=== PATIENT | male | born 1950 | race Caucasian/White ===

== ENCOUNTER 2017-07-13 07:01 | Inpatient (IN) | payer MEDICARE ==
[~2017-07-13] VITALS: Ht 172.7 cm; Wt 72.1 kg
[~2017-07-13 07:01] MED LIST: BACITRACIN 50,000 UNIT ONE; BUPIVACAINE 0.25% ONE; BUPIVACAINE/PF 0.5% ONE; EPINEPHRINE 1 MG/ML, 1ML ONE; THROMBIN 5,000 UNIT VIAL TP ONE
[2017-07-13] MEDS ORDERED: LISI-167 PO (07:58)
[2017-07-13] MEDS ORDERED: ATOR10TA9 PO (07:58)
[2017-07-13 07:59] VITALS: BP 136/76
[2017-07-13] MEDS ORDERED: LIDOCAINE 1%, 2ML SQ PRN (08:00)
[2017-07-13] MEDS ORDERED: PLEASE ENTER HEIGHT AND WEIGHT MC SCH (08:30)
[2017-07-13] MEDS: LACTATED RINGERS 1,000 ML IV SCH ×2 (08:34→15:04)
[2017-07-13] MEDS ORDERED: FLU VACC QS2017-18 (36MOS+) UP/PF 0.5 ML IM-VACC ONE ×2 (09:00→16:30)
[2017-07-13] MEDS ORDERED: MIDAZOLAM 1 MG/ML, 2ML ONE (09:00)
[2017-07-13] MEDS ORDERED: FENTANYL PF 250 MCG/5ML ONE (09:01)
[2017-07-13] MEDS ORDERED: CEFAZOLIN 1,000 MG ONE (09:03)
[2017-07-13] MEDS ORDERED: DEXAMETHASONE 4 MG/ML, 1ML ONE (09:03)
[2017-07-13] MEDS ORDERED: ONDANSETRON 2MG/ML, 2ML ONE (09:03)
[2017-07-13] MEDS ORDERED: PROPOFOL 10 MG/ML, 20ML ONE (09:03)
[2017-07-13] MEDS ORDERED: LIDOCAINE GEL 2%, 5ML ONE ×2 (09:03)
[2017-07-13] MEDS ORDERED: SUCCINYLCHOLINE 20 MG/ML, 10ML ONE (09:03)
[2017-07-13] MEDS ORDERED: PHENYLEPHRINE 10 MG/ML ONE (10:35)
[2017-07-13] MEDS ORDERED: LABETALOL 5MG/ML, 20ML ONE (10:35)
[2017-07-13] MEDS ORDERED: ROCURONIUM 10 MG/ML,10ML ONE (10:35)
[2017-07-13] MEDS ORDERED: EPHEDRINE 50 MG/ML, 1ML ONE ×2 (11:09)
[2017-07-13] MEDS ORDERED: FENTANYL PF 100 MCG/2ML IV PRN (11:30)
[2017-07-13] MEDS ORDERED: hydrALAzine 20 MG/ML, 1ML IV PRN (11:30)
[2017-07-13] MEDS ORDERED: MEPERIDINE/PF 25MG/0.5ML IVPush PRN (11:30)
[2017-07-13] MEDS ORDERED: MIDAZOLAM 1 MG/ML, 2ML IV PRN (11:30)
[2017-07-13] MEDS ORDERED: OXYcodone 5 MG/5 ML ORAL.SOL UDC PO PRN (11:30)
[2017-07-13] MEDS ORDERED: DIAZEPAM 5 MG/ML, 2ML IVPush PRN (11:30)
[2017-07-13] MEDS ORDERED: HYDROmorphone 1 MG/ML, 1ML IV PRN (11:30)
[2017-07-13] MEDS ORDERED: PROMETHAZINE 25 MG/ML, 1ML IV PRN (11:30)
[2017-07-13] MEDS ORDERED: ALBUTEROL/IPRATROPIUM 2.5MG/0.5MG, 3 ML NPPB PRN (11:30)
[2017-07-13] MEDS ORDERED: LORazepam 2 MG/ML, 1ML IVPush PRN (11:30)
[2017-07-13] MEDS ORDERED: LABETALOL 5MG/ML, 20ML IV PRN (11:30)
[2017-07-13] MEDS ORDERED: ACETAMINOPHEN 325 MG TABLET PO PRN (11:30)
[2017-07-13] MEDS ORDERED: ONDANSETRON 2MG/ML, 2ML IVPush PRN ×2 (11:30→13:30)
[2017-07-13] MEDS ORDERED: OXYcodone/APAP 5/325MG TABLET PO PRN (13:30)
[2017-07-13] MEDS ORDERED: PHARMACY MAY ADJ FOR RENAL FX MC PRN (13:30)
[2017-07-13] MEDS ORDERED: morphine SULFATE 10 MG/ML, 1ML IVPush PRN (13:30)
[2017-07-13] MEDS ORDERED: BISACODYL 10 MG SUPP PR PRN (13:30)
[2017-07-13] MEDS ORDERED: PROMETHAZINE 25 MG/ML, 1ML IM PRN (13:30)
[2017-07-13] MEDS ORDERED: CYCLOBENZAPRINE 10 MG TABLET PO PRN (13:30)
[2017-07-13] MEDS ORDERED: OXYcodone 5 MG/5 ML ORAL.SOL UDC ONE (13:30)
[2017-07-13] MEDS ORDERED: ACETAMINOPHEN 650 MG/20.3 ML UDC ONE (13:30)
[2017-07-13] MEDS ORDERED: DIPHENHYDRAMINE 50 MG/ML, 1ML IVPush PRN (13:30)
[2017-07-13] MEDS ORDERED: SENNA/DOCUSATE TABLET PO PRN (13:30)
[2017-07-13] MEDS ORDERED: PROMETHAZINE 25 MG/ML, 1ML ONE (13:53)
[2017-07-13 14:35] VITALS: BP 119/69
[2017-07-13] MEDS ORDERED: CEFAZOLIN PMX 1GM/50ML 50 ML IVPB SCH (15:30)
[2017-07-13] MEDS: D5%-0.9% NACL+KCL 20MEQ 1,000 ML IV SCH (16:53)
[2017-07-13] MEDS: CEFAZOLIN PMX 1GM/50ML 50 ML IVPB SCH (18:14)
[2017-07-13 19:26] VITALS: BP 112/63
[2017-07-13] MEDS: SODIUM CHLORIDE FLUSH 10ML SYR IVF SCH (21:00)
[2017-07-13] MEDS: ATORVASTATIN 10 MG TABLET PO SCH (21:00)
[2017-07-14 00:54] VITALS: BP 115/56
[2017-07-14] MEDS: CEFAZOLIN PMX 1GM/50ML 50 ML IVPB SCH (03:08)
[2017-07-14] MEDS: HYDROcodone/APAP 5/325 TABLET PO PRN (04:20)
[2017-07-14] MEDS: SODIUM CHLORIDE FLUSH 10ML SYR IVF SCH ×2 (09:00→21:21)
[2017-07-14] MEDS: LISINOPRIL 10 MG TABLET PO SCH (09:26)
[2017-07-14] MEDS: D5%-0.9% NACL+KCL 20MEQ 1,000 ML IV SCH ×2 (09:26→21:20)
[2017-07-14 09:27] VITALS: BP 110/57
[2017-07-14] MEDS: HYDROcodone/APAP 10/325 MG TABLET PO PRN ×2 (12:14→20:26)
[2017-07-14 12:46] VITALS: BP 115/70
[2017-07-14 19:50] VITALS: BP 104/54
[2017-07-14] MEDS: ATORVASTATIN 10 MG TABLET PO SCH (21:21)
[2017-07-15 00:37] VITALS: BP 118/68
[2017-07-15 07:51] VITALS: BP 133/77
[2017-07-15] MEDS: SODIUM CHLORIDE FLUSH 10ML SYR IVF SCH ×2 (09:13→22:31)
[2017-07-15] MEDS: HYDROcodone/APAP 10/325 MG TABLET PO PRN (09:13)
[2017-07-15] MEDS: LISINOPRIL 10 MG TABLET PO SCH (09:13)
[2017-07-15] MEDS: D5%-0.9% NACL+KCL 20MEQ 1,000 ML IV SCH (10:31)
[2017-07-15 13:21] VITALS: BP 133/73
[2017-07-15 19:28] VITALS: BP 99/64
[2017-07-15] MEDS: ATORVASTATIN 10 MG TABLET PO SCH (22:31)
[2017-07-15] MEDS: HYDROcodone/APAP 5/325 TABLET PO PRN (22:32)
[2017-07-16 03:41] VITALS: BP 106/68
[2017-07-16 07:20] VITALS: BP 98/63
[2017-07-16] MEDS: LISINOPRIL 10 MG TABLET PO SCH (08:40)
[2017-07-16] MEDS: SODIUM CHLORIDE FLUSH 10ML SYR IVF SCH ×2 (08:40→21:00)
[2017-07-16] MEDS: D5%-0.9% NACL+KCL 20MEQ 1,000 ML IV SCH ×2 (13:35)
[2017-07-16 14:40] VITALS: BP 103/63
[2017-07-16] MEDS ORDERED: LACTULOSE 20 GM/30 ML UDC PO PRN (15:00)
[2017-07-16 21:00] VITALS: BP 111/67
[2017-07-16] MEDS: ATORVASTATIN 10 MG TABLET PO SCH (21:00)
[2017-07-16] MEDS: SENNA/DOCUSATE TABLET PO SCH (21:22)
[2017-07-16] MEDS: MAGNESIUM HYDROXIDE 8%, 30ML UDC PO PRN (21:22)
[2017-07-17 01:50] VITALS: BP 116/72
[2017-07-17] MEDS: D5%-0.9% NACL+KCL 20MEQ 1,000 ML IV SCH ×2 (02:40→16:00)
[2017-07-17 08:35] LABS: BASOPHILS # (AUTO) 0.04 x10^3/uL (0-0.1); BASOPHILS % (AUTO) 0 % (0-1); EOSINOPHILS # (AUTO) 0.18 x10^3/uL (0-0.4); EOSINOPHILS % (AUTO) 2 % (1-7); LYMPHOCYTES # (AUTO) 1.62 x10^3/uL (1-3.4); LYMPHOCYTES % (AUTO) 17 % (22-44); MD NO; MEAN CORPUSCULAR HEMOGLOBIN 33.6 pg (27.5-34.5); MEAN CORPUSCULAR HGB CONC 34.3 g/dL (33.2-36.2); MEAN CORPUSCULAR VOLUME 97.8 fL (81-97); MEAN PLATELET VOLUME 7.7 fL (7.4-10.4); MONOCYTES # (AUTO) 0.64 x10^3/uL (0.2-0.8); MONOCYTES % (AUTO) 7 % (2-9); NEUTROPHILS # (AUTO) 7.07 x10^3/uL (1.8-6.8); NEUTROPHILS % (AUTO) 74 % (42-75); PLATELET COUNT 224 x10^3/uL (130-400); RED CELL DISTRIBUTION WIDTH 13.5 % (9.4-14.8)
[2017-07-17 08:37] VITALS: BP 125/63
[2017-07-17] MEDS: LISINOPRIL 10 MG TABLET PO SCH (08:40)
[2017-07-17] MEDS: SENNA/DOCUSATE TABLET PO SCH (08:41)
[2017-07-17] MEDS: SODIUM CHLORIDE FLUSH 10ML SYR IVF SCH ×2 (08:42→21:00)
[2017-07-17] MEDS: POLYETHYLENE GLYCOL 17 GM PACKET PO SCH (08:42)
[2017-07-17] MEDS: DOCUSATE 100 MG CAPSULE PO SCH (08:43)
[2017-07-17 08:45] LABS: ANION GAP 5 mmol/L (5-15); CHLORIDE 102 mmol/L (98-107)
[2017-07-17 08:46] LABS: CREATININE 0.68 mg/dL (0.7-1.3)
[2017-07-17 13:36] VITALS: BP 97/65
[2017-07-17] MEDS: HYDROcodone/APAP 5/325 TABLET PO PRN (13:59)
[2017-07-17] MEDS: HYDROcodone/APAP 10/325 MG TABLET PO PRN (18:39)
[2017-07-17 19:00] VITALS: BP 97/57
[2017-07-17] MEDS: ATORVASTATIN 10 MG TABLET PO SCH (21:00)
[2017-07-18 02:16] VITALS: BP 96/57
[2017-07-18] MEDS: D5%-0.9% NACL+KCL 20MEQ 1,000 ML IV SCH (05:20)
[2017-07-18] MEDS: LISINOPRIL 10 MG TABLET PO SCH (07:58)
[2017-07-18] MEDS: POLYETHYLENE GLYCOL 17 GM PACKET PO SCH (08:21)
[2017-07-18] MEDS: MAGNESIUM HYDROXIDE 8%, 30ML UDC PO PRN (08:21)
[2017-07-18] MEDS: DOCUSATE 100 MG CAPSULE PO SCH (08:21)
[2017-07-18] MEDS: HYDROcodone/APAP 10/325 MG TABLET PO PRN ×3 (08:21→16:40)
[2017-07-18 08:49] VITALS: BP 113/61
[2017-07-18] MEDS: SODIUM CHLORIDE FLUSH 10ML SYR IVF SCH (09:00)
[2017-07-18 14:59] VITALS: BP 109/54
[2017-07-18] MEDS ORDERED: HYDR-3307 PO (16:47)
[2017-07-18] MEDS ORDERED: CYCL-259 PO (16:48)
[2017-07-18] MEDS ORDERED: DOXY100T PO (16:48)
== END 2017-07-18 17:07 | disposition home or self-care (01) | DRG 519 ==
LOC: OUT 07:01 → ORIP 13:02 → 4NOR 14:28 → DCLOUNGE 07-18 16:50
PROVIDERS: ADMIT Neurological Surgery; ATTEND Neurological Surgery
PROC: 01NB0ZZ Release Lumbar Nerve, Open Approach (ICD-10-PCS; 2017-07-13)
PROC: 01NR0ZZ Release Sacral Nerve, Open Approach (ICD-10-PCS; 2017-07-13)
PROC: 00Q20ZZ Repair Dura Mater, Open Approach (ICD-10-PCS; 2017-07-13)
PROC: 0SB20ZZ Excision of Lumbar Vertebral Disc, Open Approach (ICD-10-PCS; principal; 2017-07-13 11:00)
DX: M48.061 Spinal stenosis, lumbar region without neurogenic claudication (principal); G95.81 Conus medullaris syndrome; G96.11 Dural tear; M21.372 Foot drop, left foot; M51.16 Intervertebral disc disorders with radiculopathy, lumbar region; M51.17 Intervertebral disc disorders with radiculopathy, lumbosacral region; M48.07 Spinal stenosis, lumbosacral region; F17.210 Nicotine dependence, cigarettes, uncomplicated; Z23 Encounter for immunization
CPT/HCPCS: 36415; 72100; 80048; 85025; 90686; J0171; J0690; J1100; J2250; J2405; J2550; J2704; J3010; J3490; C1781; J0330; J2370; J3480; J7120